=== PATIENT | female | born 1980 | race American Indian/Alaskan Native ===

== ENCOUNTER 2018-10-11 08:22 | Emergency (ER) | payer MEDICAID ==
[2018-10-11 08:22] VITALS: BMI 25.0
[2018-10-11 08:26] VITALS: RESP 18
[2018-10-11] MEDS ORDERED: Sodium Chloride 0.9% 1,000 ML IV STA (08:42)
--- NOTE | 2018-10-11 08:48 | ED PDOC ---
HPI: Abdomen Time Seen by Provider: 10/11/18 08:36 Chief Complaint (Nursing): GI Problem Chief Complaint (Provider): Nausea, Abdomnial Pain History Per: Patient History/Exam Limitations: no limitations Onset/Duration Of Symptoms: Days (x2) Current Symptoms Are (Timing): Still Present Additional Complaint(s): Jeannie Horner is a 37 year old female presenting for evaluation of nausea and abdominal pain x2 days. Patient states her symptoms began yesterday and were present the entire day. Patient reports some urinary frequency and states her abdomen feels "weird." Patient states she waited to seek medical evaluation because she "didn't want to be discharged at 3am." Patient denies any fevers, chills, weakness, body aches, headache, cough, chest pain, shortness of breath, vomiting, diarrhea, back pain, pelvic pain, bladder or bowel incontinence, dysuria, or hematuria. 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/25) Denies: Depression - Family History Family History: States: Unknown Family Hx - Home Medications Home Medications: Ambulatory Orders Medication Instructions Recorded Levetiracetam [Keppra] 1,000 mg PO BID 12/10/15 Naproxen 500 mg PO BID #20 tab 12/10/15 Ondansetron [Zofran] 4 mg PO Q8H PRN #6 tab 10/11/18 - Allergies Allergies/Adverse Reactions: Allergies Allergy/AdvReac Type Severity Reaction Status Date / Time No Known Allergies Allergy Verified 12/10/15 11:09 Review of Systems ROS Statement: Except As Marked, All Systems Reviewed And Found Negative Constitutional: Negative for: Fever, Chills, Weakness Cardiovascular: Negative for: Chest Pain Respiratory: Negative for: Cough, Shortness of Breath Gastrointestinal: Positive for: Nausea, Abdominal Pain. Negative for: Vomiting, Diarrhea, Constipation Genitourinary Female: Negative for: Dysuria, Frequency, Incontinence, Hematuria, Pelvic Pain Musculoskeletal: Negative for: Back Pain Neurological: Negative for: Headache, Dizziness Physical Exam - Reviewed Nursing Documentation Reviewed: Yes Vital Signs Reviewed: Yes - Physical Exam Appears: Positive for: Non-toxic, No Acute Distress Head Exam: Positive for: ATRAUMATIC, NORMAL INSPECTION, NORMOCEPHALIC Skin: Positive for: Normal Color, Warm, Dry. Negative for: Rash Eye Exam: Positive for: EOMI, Normal appearance, PERRL ENT: Positive for: Normal ENT Inspection Neck: Positive for: Normal, Painless ROM, Supple Cardiovascular/Chest: Positive for: Regular Rate, Rhythm. Negative for: Murmur Respiratory: Positive for: Normal Breath Sounds. Negative for: Respiratory Distress Gastrointestinal/Abdominal: Positive for: Normal Exam, Soft. Negative for: Tenderness, Guarding, Rebound Back: Positive for: Normal Inspection. Negative for: L CVA Tenderness, R CVA Tenderness, Vertebral Tenderness Extremity: Positive for: Normal ROM. Negative for: Pedal Edema, Deformity Neurologic/Psych: Positive for: Alert, Oriented. Negative for: Motor/Sensory Deficits - Laboratory Results Result Diagrams: 10/11/18 08:52 10/11/18 08:52 Interpretation Of Abn Labs: no acute - ECG O2 Sat by Pulse Oximetry: 99 (RA) Pulse Ox Interpretation: Normal - Progress ED Course And Treament: 1023: Stable. AAOx3. Pain free. Tolerated PO. Fu with pcp. Medical Decision Making Medical Decision Makin Plan: -BMP -Lipase -Urine dip -CBC -1L NS IVB -Pepcid 20mg IV -Zofran 4mg IV -Reevaluation Scribe Attestation: Documented by Petar Dao, acting as a scribe for Eder Elizondo MD. Provider Scribe Attestation: All medical record entries made by the Scribe were at my direction and personally dictated by me. I have reviewed the chart and agree that the record accurately reflects my personal performance of the history, physical exam, medical decision making, and the department course for this patient. I have also personally directed, reviewed, and agree with the discharge instructions and disposition. Disposition - Clinical Impression Clinical Impression: Nausea - Patient ED Disposition Is Patient to be Admitted: No Counseled Patient/Family Regarding: Studies Performed, Diagnosis, Need For Followup, Rx Given - Disposition Referrals: [facility] [Outside] - 10/14/18 Disposition: Routine/Home Disposition Time: 10:23 Condition: STABLE Additional Instructions: Return if not better in 3 days. Prescriptions: Ondansetron [Zofran] 4 mg PO Q8H PRN #6 tab PRN Reason: Nausea/Vomiting Instructions: Nausea and Vomiting, Adult (DC)
[2018-10-11 09:03] LABS: BASO # 0.1 K/uL (0.0-0.2); EOS # 0.1 K/uL (0.0-0.7); EOS % 1.4 % (0.0-4.0); HEMOGLOBIN 12.5 g/dL (12.0-16.0); LYMPH # 2.2 K/uL (1.0-4.3); LYMPH % 40.6 % (20.0-40.0); MEAN CELL VOLUME 83.9 fl (81.0-99.0); MEAN CORPUSCULAR HGB CONC 32.2 g/dL (33.0-37.0); MEAN PLATELET VOLUME 8.7 fl (7.2-11.7); MONO # 0.5 K/uL (0.0-0.8); MONO % 9.2 % (0.0-10.0); NEUT # 2.5 K/uL (1.8-7.0); NEUT % 47.8 % (50.0-75.0); NRBC % 0.1 % (0.0-0.0); RBC 4.61 Mil/uL (3.80-5.20); RED CELL DISTRIBUTION WIDTH 14.4 % (11.5-14.5); WHITE BLOOD COUNT 5.3 K/uL (4.8-10.8)
[2018-10-11 09:10] LABS: BLOOD UREA NITROGEN 12 mg/dl (7-17); CALCIUM 8.9 mg/dL (8.4-10.2); GFR NON-AFRICAN AMERICAN > 60; LIPASE 56 U/L (23-300)
[2018-10-11 11:36] VITALS: BP 96/52; PULSE 76; TEMP 98.8; O2SAT 98
== END 2018-10-11 11:33 | disposition home or self-care (01) ==
LOC: H.ER 08:22
DX: R11.0 Nausea (principal)
CPT/HCPCS: 80048; 81025; 83690; 85025; 96361; 96374; 96375; 99285; J2405; J7030

== ENCOUNTER 2018-11-24 21:49 | Emergency (ER) | payer MEDICAID ==
[2018-11-24 21:50] VITALS: BMI 25.0
[2018-11-24 22:00] VITALS: RESP 18
[2018-11-24] MEDS ORDERED: guaiFENesin DM 100 mg-10 mg/5 ml UD PO STA (22:55)
[2018-11-24] MEDS ORDERED: guaiFENesin DM 200 mg-20 mg/10 ml UD PO STA (22:57)
--- NOTE | 2018-11-24 22:58 | ED PDOC ---
HPI: Influenza Time Seen by Provider: 11/24/18 22:26 Chief Complaint: GI Problem Chief Complaint (Provider): "I don't feel well" History Per: Patient Exam Limitations: no limitations Hx Influenza Vaccination: No Risk factors for flu complications: Yes: Other (homeless) Additional complaint(s):: 38 y/o F with no significant PMH who presents with cough and malaise. Pt states that she began having a cough 2 days ago productive of whitish sputum. She has a sore throat but is able to eat and drink normally, has had some chills and has a DONOHUE. Denies fever or night sweats. She states that she just feels tired and wants to sleep. Denies body aches, SOB, chest pain, dizziness. Has not had a flu shot this season. She states that she has been having episodes of post-tussive vomiting. Denies abdominal pain, nausea or diarrhea. 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) Denies: Depression - Family History Family History: States: Unknown Family Hx - Home Medications Home Medications: Ambulatory Orders Medication Instructions Recorded Levetiracetam [Keppra] 1,000 mg PO BID 12/10/15 RX: Naproxen 500 mg PO BID #20 tab 12/10/15 Ondansetron [Zofran] 4 mg PO Q8H PRN #6 tab 10/11/18 Acetaminophen [Tylenol 325mg tab] 650 mg PO Q6 PRN 7 Days tab 11/25/18 Oseltamivir Cap [Tamiflu] 75 mg PO BID 5 Days cap 11/25/18 RX: Ibuprofen [Motrin Tab] 600 mg PO Q6 PRN 7 Days tab 11/25/18 - Allergies Allergies/Adverse Reactions: Allergies Allergy/AdvReac Type Severity Reaction Status Date / Time No Known Allergies Allergy Verified 12/10/15 11:09 Review of Systems Constitutional: Positive for: Chills. Negative for: Fever, Sweats ENT: Positive for: Throat Pain. Negative for: Ear Pain, Nose Discharge, Nose Congestion Physical Exam - Reviewed Nursing Documentation Reviewed: Yes Vital Signs Reviewed: Yes - Physical Exam ENT: Positive for: Normal ENT Inspection Neck: Positive for: Normal Cardiovascular/Chest: Positive for: Regular Rate, Rhythm Respiratory: Positive for: Normal Breath Sounds Gastrointestinal/Abdominal: Positive for: Normal Exam Lymphatic: Positive for: Normal Exam Neurologic/Psych: Positive for: Alert, Oriented, Gait (stable) Medical Decision Making Medical Decision Making: Rapid flu Tylenol 650mg PO x 1 Robitussin Influenza A+, given Tamiflu 75mg PO x 1. Re-assessed prior to d/c, feeling slightly better, stable for d/c home. - ECG O2 Sat by Pulse Oximetry: 99 Disposition - Clinical Impression Clinical Impression: Influenza A - Patient ED Disposition Is Patient to be Admitted: No Counseled Patient/Family Regarding: Studies Performed, Diagnosis, Need For Followup, Rx Given - Disposition Referrals: [facility] [Outside] Disposition: Routine/Home Disposition Time: 00:05 Condition: STABLE Additional Instructions: F/u with your primary care doctor as needed. Take full course of Tamiflu which can help reduce your symptoms but will not cure the flu as it needs to run it's course. Return to ER if you develop shortness of breath or cannot keep any fluids down. Avoid close contact with others as you are very contagious. Take Tylenol and Ibuprofen for body aches and fever if develops. Prescriptions: Acetaminophen [Tylenol 325mg tab] 650 mg PO Q6 PRN 7 Days tab PRN Reason: Pain, Moderate (4-7) RX: Ibuprofen [Motrin Tab] 600 mg PO Q6 PRN 7 Days tab PRN Reason: Pain, Moderate (4-7) Oseltamivir Cap [Tamiflu] 75 mg PO BID 5 Days cap Instructions: Flu, Adult (DC) Forms: [employer] (Namibian) Print Language: BRAZILIAN
[2018-11-24] MEDS ORDERED: guaiFENesin 100 mg/5 ml Syrup UD ONE (23:03)
[2018-11-24] MEDS ORDERED: guaiFENesin 100 mg/5 ml Syrup UD PO STA (23:13)
[2018-11-25 00:03] VITALS: BP 107/52; PULSE 86; TEMP 98.9
[2018-12-02 16:57] VITALS: O2SAT 99
== END 2018-11-25 00:18 | disposition home or self-care (01) ==
LOC: H.ER 21:49
DX: J11.1 Influenza due to unidentified influenza virus with other respiratory manifestations (principal)

== ENCOUNTER 2019-03-26 15:59 | Emergency (ER) | payer MEDICAID, OTHER ==
[2019-03-26 15:59] VITALS: BMI 25.8
[2019-03-26 16:12] VITALS: BP 114/68; PULSE 84; RESP 18; TEMP 99.5; O2SAT 99
--- NOTE | 2019-03-26 16:42 | ED PDOC ---
Lower Extremity Pain/Injury Time Seen by Provider: 03/26/19 16:29 Chief Complaint (Nursing): Lower Extremity Problem/Injury Chief Complaint (Provider): Right Leg and Foot Pain History Per: Patient History/Exam Limitations: no limitations Onset/Duration Of Symptoms: Days (x2) Current Symptoms Are (Timing): Still Present Additional Complaint(s): 38 year old female presents to the ED for evaluation of right leg and foot pain for the past two days. She notes that 2-3 weeks ago she fell landing on her right knee and has not been able to walk the same since. Otherwise, denies taking pain medications.Denies any other injuries, numbness or tingling. Past Medical History Reviewed: Historical Data, Nursing Documentation, Vital Signs Vital Signs: Last Vital Signs Temp 99.5 F 03/26/19 16:09 Pulse 84 03/26/19 16:09 Resp 18 03/26/19 16:09 BP 114/68 03/26/19 16:09 Pulse Ox 99 03/26/19 16:09 Primary Care Provider: FAMILY PROVIDER,NO - Medical History PMH: Fractures (to jaw), Migraine, Seizures Denies: Depression - Surgical History Surgical History: Other surgeries: mastectomy; jaw repair - Family History Family History: States: Unknown Family Hx - Social History Current smoker - smoking cessation education provided: No Alcohol: Social Drugs: Denies - Immunization History Hx Tetanus Toxoid Vaccination: (UNKNOWN) Hx Influenza Vaccination: (UNKNOWN) Hx Pneumococcal Vaccination: (UNKNOWN) - Home Medications Home Medications: Ambulatory Orders Medication Instructions Recorded Dicyclomine [Dicyclomine HCl] 10 mg PO Q8H PRN #12 cap 03/23/19 Famotidine [Pepcid] 20 mg PO Q8H PRN #14 tab 03/23/19 Ibuprofen [Motrin Tab] 600 mg PO Q6 PRN #20 tab 03/26/19 - Allergies Allergies/Adverse Reactions: Allergies Allergy/AdvReac Type Severity Reaction Status Date / Time No Known Allergies Allergy Verified 03/23/19 11:41 Review of Systems ROS Statement: Except As Marked, All Systems Reviewed And Found Negative Musculoskeletal: Positive for: Leg Pain (right knee), Foot Pain (right) Physical Exam - Reviewed Nursing Documentation Reviewed: Yes Vital Signs Reviewed: Yes - Physical Exam Comments: GENERAL APPEARANCE: Patient is awake, alert, oriented x 3, in no acute distress. Malodorous. SKIN: Warm, dry RIGHT LOWER EXTREMITY: capillary refill less than 2 seconds. (+) tenderness to medial posterior knee with full ROM. (+) calluses to foot, (-) tenderness. CARDIOVASCULAR: (+) distal pulses 2+. NEUROLOGIC/PSYCH: Affect: bizarre. (+) distal sensation. - ECG O2 Sat by Pulse Oximetry: 99 (RA) Pulse Ox Interpretation: Normal Medical Decision Making Medical Decision Making: Time: 1639 Initial Impression: right knee pain Initial Plan: --Tylenol 650mg PO --XR right knee --XR right foot 17:20 Date of service: 03/26/2019 PROCEDURE: Right Knee Radiographs. HISTORY: pain, fall COMPARISON: None. TECHNIQUE: 3 views obtained. FINDINGS: BONES: Bone alignment and mineralization are normal. There is no acute displaced fracture or bone destruction. JOINTS: Normal. JOINT EFFUSION: None. OTHER FINDINGS: None. IMPRESSION: No acute displaced fracture or dislocation. Date of service: 03/26/2019 PROCEDURE: Right Foot Radiographs. HISTORY: pain COMPARISON: None. TECHNIQUE: 3 views obtained. FINDINGS: BONES: Bone alignment and mineralization are normal. There is a round ossific density medial to the navicular. No acute displaced fracture or dislocation. JOINTS: Normal. SOFT TISSUES: Normal. OTHER FINDINGS: None. IMPRESSION: No acute displaced fracture or dislocation. Round ossific density medial to the navicular could represent an accessory ossification center or age indeterminate fracture. Please correlate with point tenderness. No point tenderness on my exam Discussed results, diagnosis, treatment, return precautions and f/u with pt who is understanding, in agreement and stable for dc Scribe Attestation: Documented by Sheba Purdy, acting as a scribe for Gerardo Sadler PA-C. Provider Scribe Attestation: All medical record entries made by the Scribe were at my direction and personally dictated by me. I have reviewed the chart and agree that the record accurately reflects my personal performance of the history, physical exam, medical decision making, and the department course for this patient. I have also personally directed, reviewed, and agree with the discharge instructions and disposition. Disposition - Clinical Impression Clinical Impression: Knee injury, Knee pain - Patient ED Disposition Is Patient to be Admitted: No Counseled Patient/Family Regarding: Studies Performed, Diagnosis, Need For Followup, Rx Given - Disposition Referrals: your, doctor [Other] Florina Wright MD [Staff Provider] - Disposition: Routine/Home Disposition Time: 17:21 Condition: STABLE Additional Instructions: Return to ED for new or worsening symptoms, fever >100.4, numbness or tingling, changes in skin color. Follow up with your primary doctor or orthopedist. Rest, ice and elevate. Take ibuprofen for pain. Prescriptions: Ibuprofen [Motrin Tab] 600 mg PO Q6 PRN #20 tab PRN Reason: Pain, Moderate (4-7) Instructions: Knee Pain (DC) Print Language: CROATIAN - POA Present On Arrival: None
--- NOTE | 2019-03-26 17:15 | RAD ---
Date of service: 03/26/2019 PROCEDURE: Right Knee Radiographs. HISTORY: pain, fall COMPARISON: None. TECHNIQUE: 3 views obtained. FINDINGS: BONES: Bone alignment and mineralization are normal. There is no acute displaced fracture or bone destruction. JOINTS: Normal. JOINT EFFUSION: None. OTHER FINDINGS: None. IMPRESSION: No acute displaced fracture or dislocation.
--- NOTE | 2019-03-26 17:17 | RAD ---
Date of service: 03/26/2019 PROCEDURE: Right Foot Radiographs. HISTORY: pain COMPARISON: None. TECHNIQUE: 3 views obtained. FINDINGS: BONES: Bone alignment and mineralization are normal. There is a round ossific density medial to the navicular. No acute displaced fracture or dislocation. JOINTS: Normal. SOFT TISSUES: Normal. OTHER FINDINGS: None. IMPRESSION: No acute displaced fracture or dislocation. Round ossific density medial to the navicular could represent an accessory ossification center or age indeterminate fracture. Please correlate with point tenderness.
== END 2019-03-26 17:51 | disposition home or self-care (01) ==
LOC: H.ER 15:59
DX: M25.561 Pain in right knee (principal)

== ENCOUNTER 2019-04-07 15:22 | Emergency (ER) | payer OTHER ==
[2019-04-07 15:24] VITALS: BMI 25.8
[2019-04-07 15:27] VITALS: BP 146/77; RESP 18
[2019-04-07 15:31] VITALS: PULSE 98; TEMP 98.2; O2SAT 99
[2019-04-07 16:13] LABS: BASO % 0.6 % (0.0-2.0); EOS # 0.1 K/uL (0.0-0.7); EOS % 1.1 % (0.0-4.0); HEMOGLOBIN 12.5 g/dL (12.0-16.0); LYMPH # 3.1 K/uL (1.0-4.3); LYMPH % 51.8 % (20.0-40.0); MEAN CELL VOLUME 83.3 fl (81.0-99.0); MEAN CORPUSCULAR HEMOGLOBIN 27.1 pg (27.0-31.0); MEAN CORPUSCULAR HGB CONC 32.5 g/dL (33.0-37.0); MEAN PLATELET VOLUME 9.2 fl (7.2-11.7); MONO # 0.4 K/uL (0.0-0.8); MONO % 7.1 % (0.0-10.0); NEUT # 2.4 K/uL (1.8-7.0); NEUT % 39.4 % (50.0-75.0); NRBC % 0.2 % (0.0-0.0); RBC 4.62 Mil/uL (3.80-5.20); RED CELL DISTRIBUTION WIDTH 15.2 % (11.5-14.5); WHITE BLOOD COUNT 6.1 K/uL (4.8-10.8)
[2019-04-07 16:24] LABS: BLOOD UREA NITROGEN 11 mg/dl (7-17); CALCIUM 8.9 mg/dL (8.4-10.2); GFR NON-AFRICAN AMERICAN > 60
--- NOTE | 2019-04-07 16:38 | ED PDOC ---
HPI: Altered Mental Status Time Seen by Provider: 04/07/19 15:28 Chief Complaint (Nursing): Altered Mental Status Chief Complaint (Provider): Altered Mental Status History Per: EMS History/Exam Limitations: Clinical Condition Onset/Duration Of Symptoms: Unknown Current Symptoms Are (Timing): Still Present Description Of Symptoms: Confused Usual Baseline: Unknown Additional Complaint(s): 38 y/o female brought in by EMS after being found unconscious in [address]. History obtained from EMS due to patient's clinical condition. As per EMS, no sign of trauma or drug paraphernalia was found on the scene. EMS report they were approximately 3 blocks away and thus brought the patient here without any medical intervention. On arrival, patient is not answering questions, has her eyes closed and localizes pain. Patient seen opening her eyes and looking around the room when not addressed but closes them she she notices people around her. When lifted patient's arm above head, arm dropped to the side. PMD: unknown Past Medical History Reviewed: Historical Data, Nursing Documentation, Vital Signs Vital Signs: Last Vital Signs Temp 98.2 F 04/07/19 15:26 Pulse 98 H 04/07/19 15:26 Resp 18 04/07/19 15:26 BP 146/77 04/07/19 15:25 Pulse Ox 99 04/07/19 15:26 Primary Care Provider: FAMILY PROVIDER,NO - Medical History PMH: Fractures (to jaw), Migraine, Seizures Denies: Depression - Surgical History Surgical History: - Family History Family History: States: Unknown Family Hx - Immunization History Hx Tetanus Toxoid Vaccination: (UNKNOWN) Hx Influenza Vaccination: (UNKNOWN) Hx Pneumococcal Vaccination: (UNKNOWN) - Home Medications Home Medications: Ambulatory Orders Medication Instructions Recorded Dicyclomine [Dicyclomine HCl] 10 mg PO Q8H PRN #12 cap 03/23/19 Famotidine [Pepcid] 20 mg PO Q8H PRN #14 tab 03/23/19 Ibuprofen [Motrin Tab] 600 mg PO Q6 PRN #20 tab 03/26/19 - Allergies Allergies/Adverse Reactions: Allergies Allergy/AdvReac Type Severity Reaction Status Date / Time No Known Allergies Allergy Verified 03/23/19 11:41 Review of Systems Review Of Systems: ROS cannot be obtained secondary to pt's inabilty to answer questions. Physical Exam - Reviewed Nursing Documentation Reviewed: Yes Vital Signs Reviewed: Yes - Physical Exam Appears: Positive for: No Acute Distress (No signs of trauma noted. Vitals within normal limits) Head Exam: Positive for: ATRAUMATIC, NORMOCEPHALIC Skin: Positive for: Normal Color, Warm Cardiovascular/Chest: Negative for: Bradycardia, Tachycardia Respiratory: Negative for: Respiratory Distress Extremity: Positive for: Normal ROM. Negative for: Pedal Edema, Deformity Neurological/Psych: Positive for: Awake (withdraws from pain) - Laboratory Results Result Diagrams: 04/07/19 16:07 04/07/19 16:07 - ECG O2 Sat by Pulse Oximetry: 99 (RA) Pulse Ox Interpretation: Normal Medical Decision Making Medical Decision Making: Time: 1546 A/P: Unconscious with unknown cause -- No abnormalities found on physical exam -- Tox and U-screen ordered -- Basic labs, EKG -- Re-assess -- Alcohol Serum -- BMP -- Urine Drug Screen -- Troponin I -- CBC with Differentials Time: 1719 -- On re-evaluation, patient is awake, alert and oriented, shouting that she can't find her money or marijuana. Patient to be discharged home. ------ Scribe Attestation: Documented by Juno Henderson, acting as a scribe for Peace James MD. Provider Scribe Attestation: All medical record entries made by the Scribe were at my direction and personally dictated by me. I have reviewed the chart and agree that the record accurately reflects my personal performance of the history, physical exam, medical decision making, and the department course for this patient. I have also personally directed, reviewed, and agree with the discharge instructions and disposition. Disposition - Clinical Impression Clinical Impression: Altered mental status, Alcohol intoxication - Patient ED Disposition Is Patient to be Admitted: No - Disposition Referrals: [facility] [Outside] Disposition: Routine/Home Disposition Time: 17:19 Condition: STABLE Additional Instructions: Do not consume drugs or alcohol. Follow up with primary medical doctor. Instructions: Alcohol Use - When Is Drinking a Problem?, Alcohol Abuse and Alcoholism (DC) Forms: [employer] (Persian)
[2019-04-07 17:21] LABS: BARBITURATES, UR NEGATIVE (NEGATIVE); BENZODIAZEPINES, UR NEGATIVE (NEGATIVE); OPIATES, UR NEGATIVE (NEGATIVE); PHENCYCLIDINE, UR POSITIVE (NEGATIVE)
== END 2019-04-07 17:27 | disposition home or self-care (01) ==
LOC: H.ER 15:22
DX: R41.82 Altered mental status, unspecified (principal); F10.129 Alcohol abuse with intoxication, unspecified